=== PATIENT | female | born 1955 | race Caucasian/White ===

== ENCOUNTER → 2016-08-23 15:51 | Outpatient (CLI) | payer OTHER | END | disposition home or self-care (01) | LOC: D.LABREF 15:51 | DX: Z11.59 Encounter for screening for other viral diseases (principal) ==

== ENCOUNTER 2016-09-19 08:25 | Outpatient (CLI) | payer OTHER | END 2016-09-19 11:18 | LOC: D.MAMMO 08:25 | DX: Z12.31 Encounter for screening mammogram for malignant neoplasm of breast (principal) ==

== ENCOUNTER → 2016-11-07 09:38 | Outpatient (CLI) | payer OTHER | END | disposition home or self-care (01) | LOC: D.US 11-06 08:00 | DX: I71.4 Abdominal aortic aneurysm, without rupture (principal) ==